=== PATIENT | female | born 1985 | race Caucasian/White ===

== ENCOUNTER → 2016-05-19 | Outpatient (CLI) | payer OTHER ==
--- NOTE | 2016-05-19 11:47 | US ---
Left Breast Ultrasound History: Follow-up left breast "fibroadenoma". The lump is enlarging and it now bothers me. Technique: Ultrasound exam with a high frequency linear transducer. Findings: The left breast fibroadenoma at the 1 o'clock radial, 10 cm from the nipple continuous 2 en larged currently measuring 3.1 x 1.4 x 2.8 cm compared to 2016: 2.2 x 2.1 x 1.1 cm and 2011: 1.8 x 1. 8 x 0.8 cm. A fibroadenoma remains gently lobulated. There is internal vascularity and one tiny cysti c area. Impression: Enlarging fibroadenoma. Recommend surgical consultation to consider excisional biopsy. Fi ndings and recommendation were discussed with the patient in detail, who is in agreement with the neil n. This could be followed on subsequent ultrasound as clinically directed but my primary recommendati on is excision considering the interval growth and symptoms. BI-RADS 4. Suspicious.
== END ==
LOC: FIMAGING 11:02
PROVIDERS: ATTEND Obstetrics & Gynecology
DX: D24.2 Benign neoplasm of left breast (principal)

== ENCOUNTER 2016-06-17 07:35 | Day surgery (SDC) | payer MEDICAID ==
[~2016-06-17 07:35] MED LIST: ceFAZolin 2 GM/DEXTROSE 100 ML IV ONE
[2016-06-17] MEDS ORDERED: BUPIVACAINE 0.5% 30 ML SDV ONE (07:40)
[2016-06-17] MEDS ORDERED: LIDOCAINE 1% 5 ML SDV ID PRN (08:19)
[2016-06-17] MEDS ORDERED: LR 1,000 ML IV ONE (08:19)
[2016-06-17] MEDS ORDERED: DEXAMETHASONE 4 MG/ML VIAL ONE (08:30)
[2016-06-17] MEDS ORDERED: fentaNYL 250 MCG/5 ML INJ ONE (08:30)
[2016-06-17] MEDS ORDERED: MIDAZOLAM 2 MG/2 ML VIAL ONE (08:30)
[2016-06-17] MEDS ORDERED: ONDANSETRON 4 MG/2 ML VIAL ONE (08:30)
[2016-06-17] MEDS ORDERED: PROPOFOL/EMULSION 500 MG/50 ML BOTTLE IV ONE (08:31)
[2016-06-17] MEDS ORDERED: LIDOCAINE 1% 30 ML SDV ONE (08:34)
[2016-06-17] MEDS ORDERED: SODIUM BICARBONATE 10 MEQ/10 ML SYR IVP ONE (08:34)
[2016-06-17] MEDS ORDERED: KETOROLAC 30 MG/1 ML SDV ONE (08:43)
--- NOTE | 2016-06-20 09:54 | GOP ---
[f rep st] OPERATIVE REPORT DATE OF OPERATION: 06/17/2016 SURGEON: Polo Chicas MD DIRECTOR OF PARTNERSHIPS: None. ANESTHESIA: General endotracheal. PREOPERATIVE DIAGNOSIS: Enlarging left breast fibroadenoma. POSTOPERATIVE DIAGNOSIS: Enlarging left breast fibroadenoma. PROCEDURE PERFORMED: Excisional left breast biopsy. FINDINGS: Well-circumscribed rubbery mass removed. No other suspicious findings identified. SPECIMENS: Left breast fibroadenoma. ESTIMATED BLOOD LOSS: 5 cc. DESCRIPTION OF PROCEDURE: The patient was greeted in the preoperative suite. Once again, risks, be nefits, and alternatives were discussed. Consent was signed. She was then brought back to the oper ative suite, placed on the OR table in a supine position. After all anesthesia machines including S CDs were on and functioning, a [employer] time-out was performed. Antibiotics were g iven on-call to the operating room. The left breast and axilla were then prepped and draped in typi meghan sterile fashion. I identified the mass via palpation and, in the upper outer quadrant, made a c urvilinear incision following Lay lines approximately 2.5 cm on the skin. I deepened this to the subcutaneous tissue. I then identified the mass which was rubbery and consistent with previous dar ging and appeared to be a fibroadenoma. I grasped it with an Allis clamp. Using gentle retraction, I then freed it from all of the underlying breast tissue. Once this was done, I successfully amput ated it and passed it off for final pathology. Hemostasis was achieved in the field with direct pre ssure and electrocautery. I then infiltrated 0.25% Marcaine into the field to provide local anesthe tic field block. Once this was done, I turned my attention toward closing the wound in layers. I r eapproximated the subcutaneous tissue with interrupted 3-0 Vicryl and closed the skin with running 4 -0 Monocryl. Steri-Strips, Mastisol, and sterile dressing were placed. The patient was then extuba jhoana in the operative suite and taken to the PACU in satisfactory condition. DRAINS: None. COUNTS: All counts were reported as correct x2. /[id number]/MODL
== END 2016-06-17 13:00 | disposition home or self-care (01) ==
LOC: FSGY 07:35
PROVIDERS: ATTEND Surgery
PROC: 0HBU0ZX Excision of Left Breast, Open Approach, Diagnostic (ICD-10-PCS; principal; 2016-06-17 08:45)
DX: D24.2 Benign neoplasm of left breast (principal)
CPT/HCPCS: J0690; J1100; J1885; J2250; J2405; J2704; J3010